=== PATIENT | female | born 1995 ===

== ENCOUNTER 2019-04-18 15:42 | Outpatient (CLI) | payer OTHER ==
--- NOTE | 2019-04-18 17:21 | ULT ---
OB ULTRASOUND: Date: 04/18/19 HISTORY: anatomy, cervical length. FINDINGS: A single, live intrauterine gestation is seen, with measurements corresponding to an estimated gestat ional age of 21 weeks/4 days, and REYNALDO at 08/25/2019. The estimated weight measures 420 gm or 15 oz (58% by Hadlock criteria). measurements are as follows: BPD: 5.21 cm, 21 weeks/6 days HC: 18.66 cm, 21 weeks/0 days AC: 16.58 cm, 21 weeks/5 days FL: 3.53 cm, 21 weeks/2 days heart rate measures 150 beats/minute. Placenta is transverse. ALISSON measures 13 cm. No placenta p revia is seen. Cervical length measures 3.7 cm. A 3 vessel cord, cord insertion, kidneys, bladder, spine, stomach, 4 chamber heart, lateral leatha tricles, cerebellum, lips/nose, upper/lower extremities are visualized. No definite anomalies a re seen. IMPRESSION: 1. Single, live intrauterine of 21 weeks/4 days estimated gestational age and REYNALDO at 08/25. 2. Cervical length is 3.7 cm. POS: OFF
== END 2019-04-18 15:43 | disposition home or self-care (01) ==
LOC: BICULT 15:42
PROVIDERS: ATTEND Family Medicine
DX: Z34.82 Encounter for supervision of other normal pregnancy, second trimester (principal); Z3A.21 21 weeks gestation of pregnancy
CPT/HCPCS: 76805

== ENCOUNTER 2019-08-28 08:13 | Inpatient (IN) | payer OTHER ==
[2019-08-28 08:44] VITALS: BMI 32.1
[2019-08-28] MEDS ORDERED: HYDROcodone/Acetaminophen 5/325 mg Tablet PO PRN ×4 (09:01→23:08)
[2019-08-28] MEDS ORDERED: hydrALAZINE 20 MG/ML VIAL SLOW IVP PRN ×2 (09:01→23:08)
[2019-08-28] MEDS ORDERED: Ondansetron PF 4 MG/2 ML Vial IVP PRN ×3 (09:01→23:08)
[2019-08-28] MEDS ORDERED: Promethazine HCl 25 MG/ML VIAL IM PRN ×3 (09:01→23:08)
[2019-08-28] MEDS ORDERED: Ibuprofen 800 MG TAB PO PRN (09:01)
[2019-08-28] MEDS ORDERED: Acetaminophen 500 MG TAB PO PRN (09:01)
[2019-08-28] MEDS ORDERED: Lidocaine 1% (PF) 30 ML VIAL SC PRN (09:01)
[2019-08-28] MEDS ORDERED: Meperidine HCl/PF 25 MG/ML VIAL IM/IV PRN (09:01)
[2019-08-28] MEDS ORDERED: Zolpidem Tartrate 5 MG TAB PO PRN (09:01)
[2019-08-28] MEDS ORDERED: Butorphanol Tartrate 1 MG/ML VIAL SLOW IVP PRN (09:01)
--- NOTE | 2019-08-28 09:07 | PDOC.LDHP ---
Labor and Delivery H&P Chief complaint: contractions HPI: 23 yo LAF c/o regular UCs since last PM. Denies LOF, bleeding. Current gestational age (weeks): 40 Due date: 08/28/19 Dating criteria: last menstrual period Grav: 2 Para: 1 OB History Details: h/o x2, uncomplicated Current complications: none (Last exam by DR. vick in office, cervix was closed GBS +) Abnormal US findings: No Past Medical History: none Current medications: pre-johnny vitamins Previous surgical history: none Allergies/Adverse Reactions: Allergies Allergy/AdvReac Type Severity Reaction Status Date / Time No Known Allergies Allergy Verified 08/28/19 08:38 Social history: none - Physical Exam Vital signs reviewed and normal: yes General: resting Heart: RRR Lungs: CTAB Abdomen: gravid Extremeties: trace edema FHT: variable decelerations [place] contractions every: q 4=5 mins - Vaginal Exam cm dilated: 3 Effacement: 50% Station: -1 - OB Labs GBS: positive - Assessment L&D Assessment: term patient in labor - Plan Plan: admit to L&D, labor augmentation if indicated (Dr. Vick notified of admit ), GBS antibiotic prophylaxis, informed consent obtained, anesthesia consult for pain management
[2019-08-28] MEDS ORDERED: Lactated Ringer's 1,000 ML IV SCH (09:15)
[2019-08-28] MEDS ORDERED: Penicillin G Potassium 5 MILL.UNITS in Sodium Chloride 0.9% 100 ML IVPB SCH (09:15)
[2019-08-28] MEDS: Lactated Ringer's 1,000 ML IV SCH ×2 (09:35→17:28)
[2019-08-28 09:53] LABS: Hemoglobin 12.2 g/dL (12.0-16.0); Mean Corpuscular HGB CONC 34.2 g/dL (32.0-36.0); Mean Corpuscular Hemoglobin 31.4 pg (27.0-31.0); Mean Corpuscular Volume 91.7 fL (78.0-98.0); Mean Platelet Volume 7.9 fL (7.4-10.4); Platelet Count 212 thou/uL (130-400); RBC Distribution Width 13.7 % (11.5-14.5); Red Blood Cell (RBC) Count 3.88 mill/uL (4.20-5.40); White Blood Cell (WBC) Count 12.5 thou/uL (4.8-10.8)
[2019-08-28 10:29] LABS: HBSAg Index 0.25 S/CO (0-0.99); Hep B Surf Ag Non-Reactive S/CO (NonReactive); Syphilis Antibody Nonreactive (Nonreactive)
[2019-08-28] MEDS ORDERED: NS w/ Oxytocin 10 units 500 ML ONE (13:22)
[2019-08-28] MEDS: Penicillin G 2.5 MILL.units 2.5 MILL.UNITS in Premix Bag 1 BAG IVPB SCH ×3 (13:26→23:50)
[2019-08-28] MEDS ORDERED: Fentanyl 4 mcg/Bup 0.1% Cadd 100 ML ONE (16:04)
[2019-08-28] MEDS ORDERED: Bupivacaine 0.25% HCL 30 ML VIAL ONE (16:12)
[2019-08-28] MEDS ORDERED: EPHEDRINE 25 MG/5 ML SYRINGE SLOW IVP PRN (16:40)
[2019-08-28] MEDS ORDERED: diphenhydrAMINE 50 MG/ML VIAL IVP PRN (16:40)
[2019-08-28] MEDS ORDERED: Naloxone HCl 0.4 mg/ml Vial IVP PRN ×2 (16:40)
[2019-08-28] MEDS ORDERED: Acetaminophen 325 MG TAB PO PRN (16:40)
[2019-08-28] MEDS ORDERED: Lactated Ringer's 500 ML IV PRN (16:40)
[2019-08-28] MEDS ORDERED: Communication Order-Pharmacy FS SCH (16:45)
[2019-08-28] MEDS ORDERED: Fentanyl 4 mcg/Bupivacaine 0.1% Cassette 100 ML EPIDURAL SCH (16:45)
[2019-08-28] MEDS ORDERED: Lidocaine 1% (PF) 30 ML VIAL ONE (20:21)
[2019-08-28] MEDS ORDERED: NS / Oxytocin 40 units/1000ml 1,000 ML ONE (20:21)
[2019-08-28] MEDS: NS / Oxytocin 40 units/1000ml 1,000 ML IV PRN ×2 (20:30→21:35)
[2019-08-28] MEDS ORDERED: Preparation H Ointment 28 GM TUBE PR PRN (23:08)
[2019-08-28] MEDS ORDERED: Bisacodyl 10 MG SUPP PR PRN (23:08)
[2019-08-28] MEDS ORDERED: Milk Of Magnesia 30 ML UDCUP PO PRN (23:08)
[2019-08-28] MEDS ORDERED: NS / Oxytocin 40 units/1000ml 1,000 ML IV SCH (23:08)
[2019-08-28] MEDS ORDERED: diphenhydrAMINE 25 MG CAP PO PRN (23:08)
[2019-08-29] MEDS: Ibuprofen 800 MG TAB PO SCH ×3 (05:09→21:31)
[2019-08-29 06:37] LABS: Hemoglobin 11.5 g/dL (12.0-16.0); Mean Corpuscular HGB CONC 33.4 g/dL (32.0-36.0); Mean Corpuscular Hemoglobin 30.5 pg (27.0-31.0); Mean Corpuscular Volume 91.4 fL (78.0-98.0); Platelet Count 185 thou/uL (130-400); RBC Distribution Width 13.5 % (11.5-14.5); Red Blood Cell (RBC) Count 3.76 mill/uL (4.20-5.40); White Blood Cell (WBC) Count 15.5 thou/uL (4.8-10.8)
[2019-08-29] MEDS: Ferrous Sulfate 325 MG TAB PO SCH ×2 (08:55→18:01)
[2019-08-29] MEDS ORDERED: Adacel (T-DAP) 0.5 ML SYRINGE IM ONE (09:00)
[2019-08-29] MEDS: Docusate Calcium (SURFAK) 240 MG CAP PO SCH ×2 (10:15→21:32)
[2019-08-29] MEDS: Prenatal Vitamin 1 TAB PO SCH (10:15)
[2019-08-29] MEDS: Lanolin Ointment 7 GM TUBE TOP PRN (15:27)
[2019-08-30] MEDS: Ibuprofen 800 MG TAB PO SCH ×2 (05:41→13:42)
[2019-08-30 08:30] VITALS: BP 108/64; TEMP 97.9
[2019-08-30] MEDS: Ferrous Sulfate 325 MG TAB PO SCH ×2 (08:47→16:36)
[2019-08-30] MEDS: Prenatal Vitamin 1 TAB PO SCH (09:01)
[2019-08-30] MEDS: Docusate Calcium (SURFAK) 240 MG CAP PO SCH (09:01)
[2019-08-30] MEDS: Lanolin Ointment 7 GM TUBE TOP PRN (17:45)
== END 2019-08-30 17:58 | disposition home or self-care (01) | DRG 807 ==
LOC: L&D/OP 08:13 → L&D 08:14 → 3SW 23:46
PROVIDERS: ADMIT Family Medicine; ATTEND Family Medicine
PROC: 10E0XZZ Delivery of Products of Conception, External Approach (ICD-10-PCS; principal; 2019-08-28)
DX: O99.824 Streptococcus B carrier state complicating childbirth (principal); Z37.0 Single live birth; Z3A.40 40 weeks gestation of pregnancy; O69.1XX0 Labor and delivery complicated by cord around neck, with compression, not applicable or unspecified
CPT/HCPCS: 36415; 85027; 86780; 86850; 86900; 86901; 87340; J2001; J2540; J2590; J3490; S0020

== ENCOUNTER 2021-01-06 02:16 | Emergency (ER) | payer BC ==
[2021-01-06 02:54] LABS: #Basophils 0.1 thou/uL (0.0-0.2); #Eosinphils 0.1 thou/uL (0.0-0.7); #Lymphocytes 4.1 thou/uL (1.20-3.40); #Monocytes 1.1 thou/uL (0.11-0.59); #Neutrophils 6.1 thou/uL (1.40-6.50); %Basophils 0.8 % (0.0-1.0); %Eosinophils 0.7 % (0.0-10.0); %Lymphocytes 35.7 % (21.0-51.0); %Monocytes 9.4 % (0.0-10.0); %Neutrophils 53.4 % (42.0-75.0); Hemoglobin 14.3 g/dL (12.0-16.0); Mean Corpuscular HGB CONC 34.3 g/dL (32.0-36.0); Mean Corpuscular Hemoglobin 30.4 pg (27.0-31.0); Mean Corpuscular Volume 88.6 fL (78.0-98.0); Mean Platelet Volume 7.3 fL (7.4-10.4); Platelet Count 363 thou/uL (130-400); Red Blood Cell (RBC) Count 4.69 mill/uL (4.20-5.40); White Blood Cell (WBC) Count 11.3 thou/uL (4.8-10.8)
[2021-01-06 03:16] LABS: Anion Gap 14 mmol/L (10-20); BUN (Urea Nitrogen) 13 mg/dL (7.0-18.7); Calc. Creatinine Clearance 0 mL/min (70-130); Calcium 9.4 mg/dL (7.8-10.44); Carbon Dioxide 23 mmol/L (22-29); Chloride 102 mmol/L (98-107); Glucose 112 mg/dL (70-105); Potassium 3.4 mmol/L (3.5-5.1); Sodium 136 mmol/L (136-145)
[2021-01-06] MEDS ORDERED: Ondansetron ODT 8 MG TAB ONE (04:51)
[2021-01-06] MEDS ORDERED: Dicyclomine 20 MG TAB ONE (04:51)
[2021-01-06 04:55] LABS: Bacteria/HPF None Seen HPF (None Seen); Bilirubin Negative (Negative); Blood, Urine 2+ (Negative); Clarity Clear (Clear); Glucose, Urine (Dipstick) Normal (Negative); Ketone, Urine 80 mg/dL (Negative); Leukocyte Negative Leu/uL (Negative); Nitrite Negative (Negative); Protein, Urine (Dipstick) 50 mg/dL (Neg-Trace); RBC/HPF 21-50 HPF (0-3); Specific Gravity, Urine 1.044 (1.002-1.036); Squamous Epithelial 0-3 HPF (0-3); WBC/HPF 0-3 HPF (0-3)
[2021-01-06 04:56] LABS: Pregnancy Test - Urine (BHCG) Negative (Negative); Pregu Control Background? CLEAR/WHITE (CLR/WHITE); Pregu Control Bar Appear? YES (CONTROL BAR); Specific Gravity 1.044 (1.002-1.036)
== END 2021-01-06 05:12 | disposition home or self-care (01) ==
LOC: ERS 02:16
DX: R10.84 Generalized abdominal pain (principal); R11.2 Nausea with vomiting, unspecified
CPT/HCPCS: 36415; 80048; 81003; 81015; 81025; 83690; 85025; 99284; Q0162

== ENCOUNTER 2021-03-17 19:32 | Emergency (ER) | payer BC, OTHER ==
[2021-03-17 20:15] LABS: #Basophils 0.1 thou/uL (0.0-0.2); #Lymphocytes 3.8 thou/uL (1.20-3.40); #Monocytes 0.7 thou/uL (0.11-0.59); #Neutrophils 3.6 thou/uL (1.40-6.50); %Basophils 0.7 % (0.0-1.0); %Eosinophils 0.6 % (0.0-10.0); %Lymphocytes 46.1 % (21.0-51.0); %Monocytes 8.8 % (0.0-10.0); %Neutrophils 43.8 % (42.0-75.0); Hemoglobin 12.9 g/dL (12.0-16.0); Mean Corpuscular HGB CONC 33.3 g/dL (32.0-36.0); Mean Corpuscular Hemoglobin 29.8 pg (27.0-31.0); Mean Corpuscular Volume 89.6 fL (78.0-98.0); Mean Platelet Volume 7.5 fL (7.4-10.4); Platelet Count 320 thou/uL (130-400); RBC Distribution Width 11.9 % (11.5-14.5); Red Blood Cell (RBC) Count 4.34 mill/uL (4.20-5.40); White Blood Cell (WBC) Count 8.2 thou/uL (4.8-10.8)
[2021-03-17 20:37] LABS: ALT (SGPT) 11 U/L (8-55); AST (SGOT) 19 U/L (5-34); Albumin 4.1 g/dL (3.5-5.0); Alkaline Phosphatase 68 U/L (40-110); Anion Gap 9 mmol/L (10-20); BUN (Urea Nitrogen) 15 mg/dL (7.0-18.7); Bilirubin, Total 0.3 mg/dL (0.2-1.2); Calc. Creatinine Clearance 0 mL/min (70-130); Calcium 9.5 mg/dL (7.8-10.44); Carbon Dioxide 25 mmol/L (22-29); Chloride 104 mmol/L (98-107); Globulin 3.2 g/dL (2.4-3.5); Glucose 85 mg/dL (70-105); Protein, Total 7.3 g/dL (6.0-8.3); Sodium 134 mmol/L (136-145)
== END 2021-03-17 23:30 | disposition home or self-care (01) ==
LOC: ERS 19:32
DX: N93.9 Abnormal uterine and vaginal bleeding, unspecified (principal)
CPT/HCPCS: 36415; 80053; 85025; 86900; 86901; 99283